=== PATIENT | female | born 1950 | race Caucasian/White ===

== ENCOUNTER → 2016-12-07 | Outpatient (CLI) | payer MEDICARE, BC | LOC: COL.LAB 06:43 | DX: R19.7 Diarrhea, unspecified (principal) ==

== ENCOUNTER 2017-04-28 12:55 | Outpatient (CLI) | payer MEDICARE, BC ==
[~2017-04-28] VITALS: Ht 162.6 cm; Wt 66.2 kg
[2017-04-28] MEDS ORDERED: SIMBRINZA 0.2%-18 ML OU (15:02)
[2017-04-28] MEDS ORDERED: TRAVATAN Z 2.52.5 ML OS (15:03)
[2017-04-28] MEDS ORDERED: METHOTREXA2.5 MG/TAB PO (15:04)
[2017-04-28] MEDS ORDERED: MYRBETR50MG PO (15:06)
[2017-04-28] MEDS ORDERED: FOLIC ACID 11 MG/TA1 PO (15:06)
[2017-04-28] MEDS ORDERED: MULTI VITAMINS1 TAB PO (15:06)
[2017-04-28] MEDS ORDERED: CALCIUM CARBON650 M2 PO (15:07)
[2017-04-28] MEDS ORDERED: THE MEDICINE S200 M2 PO (15:08)
[2017-04-28] MEDS ORDERED: VITAMIN D31000 I1 PO (15:08)
[2017-04-28] MEDS ORDERED: PROBIOTIC FORMU1 CAP PO (15:09)
[2017-04-28] MEDS ORDERED: B-12 100 MCG PO (15:09)
[2017-04-28 15:20] VITALS: BP 143/63; PULSE 62; TEMP 99
[2017-04-28 15:50] VITALS: BP 130/66; PULSE 57; TEMP 98.7
[2017-04-28 16:20] VITALS: BP 124/52; PULSE 106; TEMP 98.6
[2017-04-28 17:06] VITALS: BP 137/49; PULSE 61; TEMP 98.2
[2017-04-28 17:20] VITALS: BP 142/65; PULSE 71; TEMP 98.3
== END 2017-04-28 17:43 | disposition home or self-care (01) ==
LOC: EUO 12:55
DX: D86.89 Sarcoidosis of other sites (principal); Z79.899 Other long term (current) drug therapy
CPT/HCPCS: J1745; J7050; Q5102-ZB

== ENCOUNTER 2017-06-23 12:58 | Outpatient (CLI) | payer MEDICARE, BC ==
[~2017-06-23] VITALS: Ht 162.6 cm; Wt 66.9 kg
[~2017-06-23 12:58] MED LIST: B-12 100 MCG PO; CALCIUM CARBON650 M2 PO; FOLIC ACID 11 MG/TA1 PO; METHOTREXA2.5 MG/TAB PO; MULTI VITAMINS1 TAB PO; MYRBETR50MG PO; PROBIOTIC FORMU1 CAP PO; SIMBRINZA 0.2%-18 ML OU; THE MEDICINE S200 M2 PO; TRAVATAN Z 2.52.5 ML OS; VITAMIN D31000 I1 PO
[2017-06-23 13:24] VITALS: BP 132/66; PULSE 76; TEMP 98
== END 2017-06-23 16:26 | disposition home or self-care (01) ==
LOC: EUO 12:58
DX: D86.9 Sarcoidosis, unspecified (principal); Z88.6 Allergy status to analgesic agent; Z88.2 Allergy status to sulfonamides
CPT/HCPCS: J7050; Q5102-ZB

== ENCOUNTER → 2017-07-07 | Outpatient (CLI) | payer MEDICARE, BC | LOC: MC.RAD 10:19 | DX: Z12.31 Encounter for screening mammogram for malignant neoplasm of breast (principal) ==

== ENCOUNTER 2017-08-18 12:55 | Outpatient (CLI) | payer MEDICARE, BC ==
[~2017-08-18] VITALS: Ht 162.6 cm; Wt 67.0 kg
[2017-08-18 14:20] VITALS: BP 117/61; PULSE 55; TEMP 97.8
[2017-08-18 14:50] VITALS: BP 114/65; PULSE 58; TEMP 98.5
[2017-08-18 15:20] VITALS: BP 142/91; PULSE 59; TEMP 98.2
[2017-08-18 15:50] VITALS: BP 131/74; PULSE 50; TEMP 98.5
[2017-08-18 16:20] VITALS: BP 132/74; PULSE 64; TEMP 98.5
== END 2017-08-18 16:53 | disposition home or self-care (01) ==
LOC: EUO 12:55
DX: D86.89 Sarcoidosis of other sites (principal)
CPT/HCPCS: J7050; Q5102-ZB

== ENCOUNTER 2017-10-13 11:22 | Outpatient (CLI) | payer MEDICARE, BC ==
[~2017-10-13] VITALS: Ht 162.6 cm; Wt 67.1 kg
[2017-10-13 12:10] LABS: BASO % 0.7 % (0.0-2.0); EOS # 0.2 (0.0-0.7); GRAN % 56.5 % (42.2-75.2); LYMPH # 1.5 (1.2-3.4); MEAN CELL VOLUME 96 fl (80.0-100.0); MEAN CORPUSCULAR HGB CONC 33 g/dl (33.0-37.0); MEAN PLATELET VOLUME 8.7 fl (7.4-10.4); MONO # 0.6 (0.1-0.6); MONO % 11.4 % (1.7-9.3); PLATELET COUNT 161 K/mm3 (130-400); RED BLOOD COUNT 3.78 M/mm3 (4.10-5.30); REDCELL DISTRIBUTION WIDTH-CV 12.8 % (11.5-14.5)
[2017-10-13 12:11] LABS: HEMATOCRIT 36.3 % (37.0-47.0); HEMOGLOBIN 11.9 g/dl (12.5-16.0); MEAN CORPUSCULAR HEMOGLOBIN 31 pg (27.0-31.0)
[2017-10-13 12:20] LABS: ALANINE AMINOTRANSFERASE 34 U/L (9-52); ALBUMIN 3.6 gm/dL (3.5-5.0); ALKALINE PHOSPHATASE 57 U/L (50-136); ANION GAP 11 mmol/L (7-16); AST,SGOT 34 U/L (15-37); BILIRUBIN,TOTAL 0.4 mg/dL (0.0-1.0); BLOOD UREA NITROGEN 19 mg/dL (7-17); CALCIUM 8.9 mg/dL (8.4-10.2); CARBON DIOXIDE 26 mmol/L (22-30); CHLORIDE 102 mmol/L (98-107); CREATININE, serum 0.93 mg/dL (0.52-1.25); GLUCOSE 86 mg/dL (74-106); POTASSIUM 3.9 mmol/L (3.4-5.0); SODIUM 139 mmol/L (137-145); TOTAL PROTEIN 6.8 gm/dL (6.4-8.2)
[2017-10-13 12:21] LABS: C-REACTIVE PROTEIN < 0.5 mg/dL (0.0-0.9)
[2017-10-13 12:23] VITALS: BP 122/55; PULSE 56; TEMP 98.1
[2017-10-13 12:46] LABS: ERYTHROCYTE SEDIMENTATION RATE 7 mm/hr (0-30)
[2017-10-13 13:45] VITALS: BP 104/45; PULSE 65; TEMP 98.1
[2017-10-13 14:15] VITALS: BP 100/48; PULSE 63; TEMP 98
[2017-10-13 14:45] VITALS: BP 107/47; PULSE 55; TEMP 98.3
[2017-10-13 16:00] VITALS: BP 105/63; PULSE 60; TEMP 98.3
== END 2017-10-13 16:00 | disposition home or self-care (01) ==
LOC: EUO 11:22
PROVIDERS: Internal Medicine
DX: D86.9 Sarcoidosis, unspecified (principal); Z88.6 Allergy status to analgesic agent; Z88.2 Allergy status to sulfonamides
CPT/HCPCS: J7050; Q5103

== ENCOUNTER → 2017-10-13 | Outpatient (CLI) | payer MEDICARE, BC | LOC: COL.RAD 11:19 | DX: I89.8 Other specified noninfective disorders of lymphatic vessels and lymph nodes (principal); J98.4 Other disorders of lung; M25.78 Osteophyte, vertebrae; M47.814 Spondylosis without myelopathy or radiculopathy, thoracic region | CPT/HCPCS: J7050; Q9967 ==

== ENCOUNTER 2017-12-04 13:01 | Outpatient (CLI) | payer MEDICARE, BC ==
[~2017-12-04] VITALS: Ht 162.6 cm; Wt 69.4 kg
[2017-12-04 13:34] VITALS: BP 119/52; PULSE 65; TEMP 98.1
[2017-12-04 13:46] VITALS: BP 116/65; PULSE 57; TEMP 98.1
== END 2017-12-04 15:30 | disposition home or self-care (01) ==
LOC: EUO 13:01
DX: D86.9 Sarcoidosis, unspecified (principal)
CPT/HCPCS: J7050; Q5103

== ENCOUNTER 2018-01-27 11:04 | Outpatient (CLI) | payer MEDICARE, BC ==
[~2018-01-27] VITALS: Ht 162.6 cm; Wt 66.0 kg
[2018-01-27 11:31] LABS: BASO % 0.9 % (0.0-2.0); EOS # 0.1 (0.0-0.7); EOS % 2.8 % (0-4.0); GRAN # 2.7 (1.4-6.5); GRAN % 57.2 % (42.2-75.2); HEMATOCRIT 39.7 % (37.0-47.0); HEMOGLOBIN 13.2 g/dl (12.5-16.0); LYMPH # 1.3 (1.2-3.4); LYMPH % 26.9 % (20.0-51.0); MEAN CELL VOLUME 95 fl (80.0-100.0); MEAN CORPUSCULAR HEMOGLOBIN 32 pg (27.0-31.0); MEAN CORPUSCULAR HGB CONC 33 g/dl (33.0-37.0); MEAN PLATELET VOLUME 8.3 fl (7.4-10.4); MONO # 0.6 (0.1-0.6); PLATELET COUNT 174 K/mm3 (130-400); RED BLOOD COUNT 4.19 M/mm3 (4.10-5.30)
[2018-01-27 11:47] LABS: ALANINE AMINOTRANSFERASE 30 U/L (9-52); ALBUMIN 4.1 gm/dL (3.5-5.0); ALKALINE PHOSPHATASE 46 U/L (50-136); ANION GAP 8 mmol/L (7-16); AST,SGOT 31 U/L (15-37); BILIRUBIN,TOTAL 0.3 mg/dL (0.0-1.0); BLOOD UREA NITROGEN 16 mg/dL (7-17); CALCIUM 9.1 mg/dL (8.4-10.2); CARBON DIOXIDE 30 mmol/L (22-30); CHLORIDE 101 mmol/L (98-107); CREATININE, serum 0.93 mg/dL (0.52-1.25); GLUCOSE 76 mg/dL (74-106); POTASSIUM 4.5 mmol/L (3.4-5.0); SODIUM 139 mmol/L (137-145); TOTAL PROTEIN 7.4 gm/dL (6.4-8.2)
[2018-01-27 11:48] LABS: C-REACTIVE PROTEIN < 0.5 mg/dL (0.0-0.9)
[2018-01-27 11:52] LABS: ERYTHROCYTE SEDIMENTATION RATE 6 mm/hr (0-30)
[2018-01-27 12:30] VITALS: BP 116/57; PULSE 53; TEMP 98.5
[2018-01-27 13:00] VITALS: BP 115/60; PULSE 57; TEMP 97.9
[2018-01-27 13:30] VITALS: BP 101/55; PULSE 59; TEMP 98.3
[2018-01-27 14:00] VITALS: BP 97/62; PULSE 58; TEMP 98
[2018-01-27 14:30] VITALS: BP 113/58; PULSE 55; TEMP 98
== END 2018-01-27 14:39 | disposition home or self-care (01) ==
LOC: EUO 11:04
DX: D86.89 Sarcoidosis of other sites (principal); Z79.899 Other long term (current) drug therapy
CPT/HCPCS: J7050; Q5103

== ENCOUNTER 2018-03-24 13:08 | Outpatient (CLI) | payer MEDICARE, BC ==
[~2018-03-24] VITALS: Ht 162.6 cm; Wt 66.7 kg
[2018-03-24] VITALS (7 sets, daily range): BP systolic 95–117; BP diastolic 55–71; PULSE 53–64; TEMP 97.8–98.3
== END 2018-03-24 16:22 | disposition home or self-care (01) ==
LOC: EUO 13:08
DX: D86.89 Sarcoidosis of other sites (principal); Z79.899 Other long term (current) drug therapy
CPT/HCPCS: J7050; Q5103

== ENCOUNTER 2018-05-19 13:07 | Outpatient (CLI) | payer MEDICARE, BC ==
[~2018-05-19] VITALS: Ht 162.6 cm; Wt 67.4 kg
[2018-05-19 13:28] LABS: BASO # 0.1 (0.0-0.2); EOS # 0.2 (0.0-0.7); EOS % 3.1 % (0-4.0); GRAN # 2.8 (1.4-6.5); GRAN % 54.7 % (42.2-75.2); HEMATOCRIT 39.3 % (37.0-47.0); HEMOGLOBIN 12.8 g/dl (12.5-16.0); LYMPH # 1.5 (1.2-3.4); MEAN CELL VOLUME 96 fl (80.0-100.0); MEAN CORPUSCULAR HEMOGLOBIN 31 pg (27.0-31.0); MEAN CORPUSCULAR HGB CONC 33 g/dl (33.0-37.0); MEAN PLATELET VOLUME 8.7 fl (7.4-10.4); MONO # 0.6 (0.1-0.6); MONO % 12.2 % (1.7-9.3); PLATELET COUNT 175 K/mm3 (130-400); RED BLOOD COUNT 4.08 M/mm3 (4.10-5.30); REDCELL DISTRIBUTION WIDTH-CV 12.5 % (11.5-14.5)
[2018-05-19 13:42] LABS: ALANINE AMINOTRANSFERASE 42 U/L (9-52); ALBUMIN 4.1 gm/dL (3.5-5.0); ALKALINE PHOSPHATASE 55 U/L (50-136); ANION GAP 5 mmol/L (7-16); AST,SGOT 36 U/L (15-37); BILIRUBIN,TOTAL 0.3 mg/dL (0.0-1.0); BLOOD UREA NITROGEN 22 mg/dL (7-17); CALCIUM 9.4 mg/dL (8.4-10.2); CARBON DIOXIDE 32 mmol/L (22-30); CHLORIDE 105 mmol/L (98-107); GLUCOSE 98 mg/dL (74-106); SODIUM 142 mmol/L (137-145); TOTAL PROTEIN 7.2 gm/dL (6.4-8.2)
[2018-05-19 13:44] LABS: C-REACTIVE PROTEIN < 0.5 mg/dL (0.0-0.9)
[2018-05-19 13:52] LABS: ERYTHROCYTE SEDIMENTATION RATE 5 mm/hr (0-30)
[2018-05-19 14:17] VITALS: BP 101/57; PULSE 54; TEMP 98.6
[2018-05-19 14:52] VITALS: BP 104/55; PULSE 52; TEMP 98.3
[2018-05-19 15:37] VITALS: BP 112/61; PULSE 55; TEMP 98.7
[2018-05-19 16:09] VITALS: BP 113/56; PULSE 58; TEMP 98.4
[2018-05-19 16:35] VITALS: BP 115/60; PULSE 58; TEMP 98.6
== END 2018-05-19 16:51 | disposition home or self-care (01) ==
LOC: EUO 13:07
PROVIDERS: Family Medicine
DX: D86.89 Sarcoidosis of other sites (principal); Z79.899 Other long term (current) drug therapy
CPT/HCPCS: J7050; Q5103

== ENCOUNTER 2018-07-14 12:53 | Outpatient (CLI) | payer MEDICARE, BC ==
[~2018-07-14] VITALS: Ht 162.6 cm; Wt 67.0 kg
[2018-07-14 13:50] VITALS: BP 122/59; PULSE 60; TEMP 99
[2018-07-14 14:20] VITALS: BP 114/60; PULSE 56; TEMP 98.2
[2018-07-14 14:50] VITALS: BP 98/55; PULSE 50; TEMP 97.7
[2018-07-14 15:20] VITALS: BP 114/57; PULSE 59; TEMP 98.3
[2018-07-14 15:55] VITALS: BP 115/56; PULSE 53
== END 2018-07-14 15:56 | disposition home or self-care (01) ==
LOC: EUO 12:53
DX: D86.9 Sarcoidosis, unspecified (principal); Z79.899 Other long term (current) drug therapy
CPT/HCPCS: J7050; Q5103

== ENCOUNTER 2018-09-09 12:58 | Outpatient (CLI) | payer MEDICARE, BC ==
[~2018-09-09] VITALS: Ht 162.6 cm; Wt 67.0 kg
[2018-09-09 13:20] LABS: BASO % 0.8 % (0.0-2.0); EOS # 0.1 (0.0-0.7); EOS % 2.5 % (0-4.0); GRAN % 59.2 % (42.2-75.2); LYMPH # 1.3 (1.2-3.4); LYMPH % 25.2 % (20.0-51.0); MEAN CELL VOLUME 95 fl (80.0-100.0); MEAN CORPUSCULAR HEMOGLOBIN 31 pg (27.0-31.0); MEAN CORPUSCULAR HGB CONC 33 g/dl (33.0-37.0); MEAN PLATELET VOLUME 8.9 fl (7.4-10.4); MONO # 0.6 (0.1-0.6); MONO % 12.1 % (1.7-9.3); PLATELET COUNT 163 K/mm3 (130-400); RED BLOOD COUNT 3.86 M/mm3 (4.10-5.30); REDCELL DISTRIBUTION WIDTH-CV 12.8 % (11.5-14.5)
[2018-09-09 13:21] LABS: HEMATOCRIT 36.7 % (37.0-47.0)
[2018-09-09 13:33] LABS: ALANINE AMINOTRANSFERASE 18 U/L (9-52); ALBUMIN 3.7 gm/dL (3.5-5.0); ALKALINE PHOSPHATASE 53 U/L (50-136); ANION GAP 7 mmol/L (7-16); AST,SGOT 27 U/L (15-37); BILIRUBIN,TOTAL 0.3 mg/dL (0.0-1.0); BLOOD UREA NITROGEN 17 mg/dL (7-17); CALCIUM 8.9 mg/dL (8.4-10.2); CARBON DIOXIDE 27 mmol/L (22-30); CHLORIDE 106 mmol/L (98-107); CREATININE, serum 0.89 mg/dL (0.52-1.25); GLUCOSE 88 mg/dL (74-106); POTASSIUM 4.1 mmol/L (3.4-5.0); SODIUM 139 mmol/L (137-145); TOTAL PROTEIN 6.6 gm/dL (6.4-8.2)
[2018-09-09 13:34] LABS: C-REACTIVE PROTEIN < 0.5 mg/dL (0.0-0.9)
[2018-09-09 13:46] LABS: ERYTHROCYTE SEDIMENTATION RATE 5 mm/hr (0-30)
[2018-09-09 14:15] VITALS: BP 104/61; PULSE 60; TEMP 98.7
[2018-09-09 14:45] VITALS: BP 110/57; PULSE 52; TEMP 98.6
[2018-09-09 15:15] VITALS: BP 110/52; PULSE 50; TEMP 98.4
[2018-09-09 15:45] VITALS: BP 115/54; PULSE 51; PULSE 57; TEMP 98.6; TEMP 99.1
[2018-09-09 16:15] VITALS: BP 103/50; PULSE 57; TEMP 99.1
--- NOTE | 2018-09-09 16:20 | NUR ---
Pt javier inflectra well. Pt discharged per ambualtion.
== END 2018-09-09 16:25 | disposition home or self-care (01) ==
LOC: EUO 12:58
PROVIDERS: Internal Medicine
DX: D86.9 Sarcoidosis, unspecified (principal); Z79.899 Other long term (current) drug therapy
CPT/HCPCS: J7050; Q5103

== ENCOUNTER 2018-11-04 13:00 | Outpatient (CLI) | payer MEDICARE, BC ==
[~2018-11-04] VITALS: Ht 162.6 cm; Wt 66.8 kg
[2018-11-04 13:45] VITALS: BP 102/59; PULSE 56; TEMP 97.7
[2018-11-04 14:15] VITALS: BP 100/59; PULSE 60; TEMP 97.7
[2018-11-04 14:45] VITALS: BP 116/58; PULSE 67; TEMP 97.7
[2018-11-04 15:15] VITALS: BP 110/62; PULSE 60; TEMP 97.7
[2018-11-04 15:45] VITALS: BP 110/52; PULSE 58; TEMP 97.7
== END 2018-11-04 15:59 | disposition home or self-care (01) ==
LOC: EUO 13:00
DX: D86.9 Sarcoidosis, unspecified (principal); Z79.899 Other long term (current) drug therapy
CPT/HCPCS: J7050; Q5103

== ENCOUNTER 2018-12-30 12:57 | Outpatient (CLI) | payer MEDICARE, BC ==
[~2018-12-30] VITALS: Ht 162.6 cm; Wt 65.0 kg
[2018-12-30 13:29] LABS: BASO % 0.5 % (0.0-2.0); EOS # 0.2 (0.0-0.7); EOS % 3.6 % (0-4.0); GRAN # 3.3 (1.4-6.5); GRAN % 59.9 % (42.2-75.2); HEMATOCRIT 39.3 % (37.0-47.0); HEMOGLOBIN 12.9 g/dl (12.5-16.0); LYMPH # 1.4 (1.2-3.4); LYMPH % 24.7 % (20.0-51.0); MEAN CELL VOLUME 95 fl (80.0-100.0); MEAN CORPUSCULAR HEMOGLOBIN 31 pg (27.0-31.0); MEAN CORPUSCULAR HGB CONC 33 g/dl (33.0-37.0); MEAN PLATELET VOLUME 9.2 fl (7.4-10.4); MONO # 0.6 (0.1-0.6); MONO % 11.1 % (1.7-9.3); PLATELET COUNT 181 K/mm3 (130-400); RED BLOOD COUNT 4.14 M/mm3 (4.10-5.30); REDCELL DISTRIBUTION WIDTH-CV 13.1 % (11.5-14.5)
[2018-12-30 13:47] LABS: ALANINE AMINOTRANSFERASE 8 U/L (9-52); ALKALINE PHOSPHATASE 55 U/L (50-136); ANION GAP 10 mmol/L (7-16); AST,SGOT 28 U/L (15-37); BILIRUBIN,TOTAL 0.4 mg/dL (0.0-1.0); BLOOD UREA NITROGEN 18 mg/dL (7-17); CALCIUM 9.4 mg/dL (8.4-10.2); CARBON DIOXIDE 25 mmol/L (22-30); CHLORIDE 106 mmol/L (98-107); CREATININE, serum 0.94 (0.52-1.25); GLUCOSE 97 mg/dL (74-106); POTASSIUM 4.2 mmol/L (3.4-5.0); SODIUM 141 mmol/L (137-145); TOTAL PROTEIN 7.2 gm/dL (6.4-8.2)
[2018-12-30 13:49] LABS: C-REACTIVE PROTEIN < 0.5 mg/dL (0.0-0.9)
[2018-12-30 13:55] LABS: ERYTHROCYTE SEDIMENTATION RATE 8 mm/hr (0-30)
[2018-12-30 14:23] VITALS: BP 107/59; PULSE 62; TEMP 98.5
[2018-12-30 15:00] VITALS: BP 97/55; PULSE 55; TEMP 98
[2018-12-30 15:30] VITALS: BP 95/53; PULSE 62; TEMP 98.1
[2018-12-30 16:00] VITALS: BP 102/54; PULSE 57; TEMP 98
[2018-12-30 16:30] VITALS: BP 100/62; PULSE 63; TEMP 97.9
== END 2018-12-30 18:00 | disposition home or self-care (01) ==
LOC: EUO 12:57
PROVIDERS: Internal Medicine
DX: D86.89 Sarcoidosis of other sites (principal); Z79.899 Other long term (current) drug therapy
CPT/HCPCS: J7050; Q5103

== ENCOUNTER 2019-02-24 12:54 | Outpatient (CLI) | payer MEDICARE, BC ==
[~2019-02-24] VITALS: Ht 162.6 cm; Wt 66.0 kg
[2019-02-24 14:15] VITALS: BP 108/56; PULSE 55; TEMP 98.3
[2019-02-24 14:45] VITALS: BP 126/50; PULSE 50; TEMP 97.9
[2019-02-24 15:15] VITALS: BP 132/62; PULSE 47; TEMP 98.2
[2019-02-24 15:45] VITALS: BP 108/61; PULSE 57; TEMP 98.4
[2019-02-24 16:15] VITALS: BP 105/60; PULSE 56; TEMP 98.2
== END 2019-02-24 16:24 | disposition home or self-care (01) ==
LOC: EUO 12:54
DX: D86.9 Sarcoidosis, unspecified (principal); Z79.899 Other long term (current) drug therapy
CPT/HCPCS: J7050; Q5103

== ENCOUNTER 2019-05-03 12:44 | Outpatient (CLI) | payer MEDICARE, BC ==
[~2019-05-03] VITALS: Ht 162.6 cm; Wt 67.3 kg
[2019-05-03 13:06] LABS: BASO % 0.8 % (0.0-2.0); EOS # 0.2 (0.0-0.7); EOS % 3.3 % (0-4.0); GRAN # 2.9 (1.4-6.5); GRAN % 56.1 % (42.2-75.2); HEMATOCRIT 39.4 % (37.0-47.0); HEMOGLOBIN 12.7 g/dl (12.5-16.0); LYMPH # 1.4 (1.2-3.4); LYMPH % 26.9 % (20.0-51.0); MEAN CELL VOLUME 98 fl (80.0-100.0); MEAN CORPUSCULAR HEMOGLOBIN 31 pg (27.0-31.0); MEAN CORPUSCULAR HGB CONC 32 g/dl (33.0-37.0); MEAN PLATELET VOLUME 9.1 fl (7.4-10.4); MONO # 0.7 (0.1-0.6); MONO % 12.7 % (1.7-9.3); PLATELET COUNT 190 K/mm3 (130-400); RED BLOOD COUNT 4.04 M/mm3 (4.10-5.30); REDCELL DISTRIBUTION WIDTH-CV 12.6 % (11.5-14.5)
[2019-05-03 13:16] LABS: ALANINE AMINOTRANSFERASE 21 U/L (9-52); ALBUMIN 4.3 gm/dL (3.5-5.0); ALKALINE PHOSPHATASE 57 U/L (50-136); ANION GAP 8 mmol/L (7-16); AST,SGOT 30 U/L (15-37); BILIRUBIN,TOTAL 0.3 mg/dL (0.0-1.0); BLOOD UREA NITROGEN 18 mg/dL (7-17); CALCIUM 9.2 mg/dL (8.4-10.2); CARBON DIOXIDE 30 mmol/L (22-30); CHLORIDE 104 mmol/L (98-107); CREATININE, serum 0.92 (0.52-1.25); GLUCOSE 108 mg/dL (74-106); SODIUM 142 mmol/L (137-145); TOTAL PROTEIN 7.4 gm/dL (6.4-8.2)
[2019-05-03 13:20] LABS: C-REACTIVE PROTEIN < 0.5 mg/dL (0.0-0.9)
[2019-05-03 13:30] LABS: ERYTHROCYTE SEDIMENTATION RATE 6 mm/hr (0-30)
[2019-05-03 13:50] VITALS: BP 101/45; PULSE 51; TEMP 98.2
[2019-05-03 14:20] VITALS: BP 97/48; PULSE 54; TEMP 98.2
[2019-05-03 14:50] VITALS: BP 107/52; PULSE 59; TEMP 98.2
[2019-05-03 15:20] VITALS: BP 120/46; PULSE 60; TEMP 98.2
[2019-05-03 15:50] VITALS: BP 113/57; PULSE 61; TEMP 98.2
== END 2019-05-03 16:00 | disposition home or self-care (01) ==
LOC: EUO 12:44
PROVIDERS: Internal Medicine
DX: D86.89 Sarcoidosis of other sites (principal); Z79.899 Other long term (current) drug therapy
CPT/HCPCS: J7050; Q5103

== ENCOUNTER 2019-06-28 12:56 | Outpatient (CLI) | payer MEDICARE, BC ==
[~2019-06-28] VITALS: Ht 162.6 cm; Wt 66.7 kg
[2019-06-28 13:17] LABS: BASO % 0.6 % (0.0-2.0); EOS # 0.1 (0.0-0.7); EOS % 1.9 % (0-4.0); GRAN # 3.7 (1.4-6.5); GRAN % 58.8 % (42.2-75.2); HEMOGLOBIN 13.5 g/dl (12.5-16.0); LYMPH # 1.8 (1.2-3.4); LYMPH % 28.1 % (20.0-51.0); MEAN CELL VOLUME 96 fl (80.0-100.0); MEAN CORPUSCULAR HEMOGLOBIN 32 pg (27.0-31.0); MEAN CORPUSCULAR HGB CONC 33 g/dl (33.0-37.0); MONO # 0.7 (0.1-0.6); MONO % 10.3 % (1.7-9.3); PLATELET COUNT 219 K/mm3 (130-400); RED BLOOD COUNT 4.28 M/mm3 (4.10-5.30); REDCELL DISTRIBUTION WIDTH-CV 12.3 % (11.5-14.5)
[2019-06-28 13:31] LABS: ALANINE AMINOTRANSFERASE 21 U/L (9-52); ALBUMIN 4.5 gm/dL (3.5-5.0); ALKALINE PHOSPHATASE 60 U/L (50-136); ANION GAP 8 mmol/L (7-16); AST,SGOT 28 U/L (15-37); BILIRUBIN,TOTAL 0.4 mg/dL (0.0-1.0); BLOOD UREA NITROGEN 21 mg/dL (7-17); C-REACTIVE PROTEIN < 0.5 mg/dL (0.0-0.9); CALCIUM 9.6 mg/dL (8.4-10.2); CARBON DIOXIDE 31 mmol/L (22-30); CHLORIDE 104 mmol/L (98-107); CREATININE, serum 0.93 (0.52-1.25); GLUCOSE 101 mg/dL (74-106); SODIUM 143 mmol/L (137-145); TOTAL PROTEIN 7.8 gm/dL (6.4-8.2)
[2019-06-28 13:40] LABS: ERYTHROCYTE SEDIMENTATION RATE 8 mm/hr (0-30)
[2019-06-28 14:10] VITALS: BP 113/60; PULSE 58; TEMP 97.8
[2019-06-28 14:30] VITALS: BP 110/66; PULSE 66
[2019-06-28 15:00] VITALS: BP 106/56; PULSE 67; TEMP 97.4
[2019-06-28 15:30] VITALS: BP 108/61; PULSE 58; TEMP 98
[2019-06-28 16:00] VITALS: BP 95/65; PULSE 60
[2019-06-28 16:19] VITALS: BP 109/59; PULSE 62; TEMP 97.4
== END 2019-06-28 16:54 | disposition home or self-care (01) ==
LOC: EUO 12:56
PROVIDERS: Family Medicine
DX: D86.89 Sarcoidosis of other sites (principal); Z79.899 Other long term (current) drug therapy
CPT/HCPCS: J7050; Q5103

== ENCOUNTER → 2019-08-02 | Outpatient (CLI) | payer MEDICARE, BC | LOC: MC.RAD 11:17 | DX: Z12.31 Encounter for screening mammogram for malignant neoplasm of breast (principal) ==

== ENCOUNTER 2019-08-23 13:07 | Outpatient (CLI) | payer MEDICARE, BC ==
[2019-08-23 13:45] LABS: BASO # 0.1 (0.0-0.2); EOS # 0.2 (0.0-0.7); EOS % 4.6 % (0-4.0); GRAN # 2.7 (1.4-6.5); GRAN % 51.8 % (42.2-75.2); HEMATOCRIT 38.7 % (37.0-47.0); HEMOGLOBIN 12.4 g/dl (12.5-16.0); LYMPH # 1.5 (1.2-3.4); MEAN CELL VOLUME 96 fl (80.0-100.0); MEAN CORPUSCULAR HEMOGLOBIN 31 pg (27.0-31.0); MEAN CORPUSCULAR HGB CONC 32 g/dl (33.0-37.0); MEAN PLATELET VOLUME 8.8 fl (7.4-10.4); MONO # 0.7 (0.1-0.6); MONO % 13.4 % (1.7-9.3); PLATELET COUNT 189 K/mm3 (130-400); RED BLOOD COUNT 4.02 M/mm3 (4.10-5.30); REDCELL DISTRIBUTION WIDTH-CV 12.9 % (11.5-14.5)
[2019-08-23 13:57] LABS: ALBUMIN 4.1 gm/dL (3.5-5.0); BILIRUBIN,TOTAL 0.3 mg/dL (0.0-1.0); CALCIUM 9.1 mg/dL (8.4-10.2); CREATININE, serum 0.83 (0.52-1.25); POTASSIUM 4.1 mmol/L (3.4-5.0); TOTAL PROTEIN 7.2 gm/dL (6.4-8.2)
[2019-08-23 13:58] LABS: C-REACTIVE PROTEIN 0.5 mg/dL (0.0-0.9)
[2019-08-23 14:06] LABS: ERYTHROCYTE SEDIMENTATION RATE 9 mm/hr (0-30)
[2019-08-23 14:55] VITALS: BP 104/64; PULSE 55
[2019-08-23 15:25] VITALS: BP 123/68; PULSE 52; TEMP 98.7
[2019-08-23 15:55] VITALS: BP 112/70; PULSE 51; TEMP 98.7
[2019-08-23 16:25] VITALS: BP 99/62; PULSE 58
[2019-08-23 16:53] VITALS: BP 109/64; PULSE 58; TEMP 98.2
== END 2019-08-23 16:57 | disposition home or self-care (01) ==
LOC: EUO 13:07
PROVIDERS: Internal Medicine
DX: D86.89 Sarcoidosis of other sites (principal)
CPT/HCPCS: J7050; Q5103

== ENCOUNTER 2019-10-19 13:27 | Outpatient (CLI) | payer MEDICARE, BC ==
[~2019-10-19] VITALS: Ht 162.6 cm; Wt 66.6 kg
[2019-10-19 14:05] LABS: BASO % 0.8 % (0.0-2.0); EOS # 0.2 (0.0-0.7); EOS % 3.6 % (0-4.0); GRAN % 57.9 % (42.2-75.2); HEMATOCRIT 38.4 % (37.0-47.0); HEMOGLOBIN 12.7 g/dl (12.5-16.0); LYMPH # 1.3 (1.2-3.4); LYMPH % 25.1 % (20.0-51.0); MEAN CELL VOLUME 95 fl (80.0-100.0); MEAN CORPUSCULAR HEMOGLOBIN 31 pg (27.0-31.0); MEAN CORPUSCULAR HGB CONC 33 g/dl (33.0-37.0); MEAN PLATELET VOLUME 9.2 fl (7.4-10.4); MONO # 0.6 (0.1-0.6); MONO % 12.2 % (1.7-9.3); PLATELET COUNT 185 K/mm3 (130-400); RED BLOOD COUNT 4.05 M/mm3 (4.10-5.30); REDCELL DISTRIBUTION WIDTH-CV 12.4 % (11.5-14.5)
[2019-10-19 14:19] LABS: ALANINE AMINOTRANSFERASE 17 U/L (4-34); ALBUMIN 4.2 gm/dL (3.5-5.0); ALKALINE PHOSPHATASE 61 U/L (50-136); ANION GAP 5 mmol/L (7-16); AST,SGOT 31 U/L (15-37); BILIRUBIN,TOTAL 0.4 mg/dL (0.0-1.0); BLOOD UREA NITROGEN 18 mg/dL (7-17); CALCIUM 9.3 mg/dL (8.4-10.2); CARBON DIOXIDE 29 mmol/L (22-30); CHLORIDE 104 mmol/L (98-107); CREATININE, serum 0.86 (0.52-1.25); GLUCOSE 116 mg/dL (74-106); POTASSIUM 4.2 mmol/L (3.4-5.0); SODIUM 138 mmol/L (137-145); TOTAL PROTEIN 7.4 gm/dL (6.4-8.2)
[2019-10-19 14:20] LABS: C-REACTIVE PROTEIN < 0.5 mg/dL (0.0-0.9)
[2019-10-19 14:29] LABS: ERYTHROCYTE SEDIMENTATION RATE 7 mm/hr (0-30)
[2019-10-19 15:10] VITALS: BP 122/81; PULSE 52; TEMP 98.5
[2019-10-19 15:40] VITALS: BP 113/72; PULSE 54; TEMP 98.8
[2019-10-19 16:10] VITALS: BP 102/66; PULSE 53; TEMP 98.8
[2019-10-19 16:40] VITALS: BP 114/71; PULSE 54
[2019-10-19 17:10] VITALS: BP 115/72; PULSE 57; TEMP 98.7
[2019-10-19 17:28] VITALS: BP 120/75; PULSE 53; TEMP 98.7
== END 2019-10-19 17:28 | disposition home or self-care (01) ==
LOC: EUO 13:27
PROVIDERS: Internal Medicine
DX: Z51.81 Encounter for therapeutic drug level monitoring (principal); D86.89 Sarcoidosis of other sites
CPT/HCPCS: J7050; Q5103

== ENCOUNTER 2019-12-14 13:21 | Outpatient (CLI) | payer MEDICARE, BC ==
[~2019-12-14] VITALS: Ht 162.6 cm; Wt 67.0 kg
[2019-12-14 13:48] LABS: BASO % 0.6 % (0.0-2.0); EOS # 0.1 (0.0-0.7); EOS % 2.7 % (0-4.0); GRAN # 2.9 (1.4-6.5); GRAN % 54.9 % (42.2-75.2); HEMOGLOBIN 12.8 g/dl (12.5-16.0); LYMPH # 1.5 (1.2-3.4); LYMPH % 27.7 % (20.0-51.0); MEAN CELL VOLUME 94 fl (80.0-100.0); MEAN CORPUSCULAR HEMOGLOBIN 31 pg (27.0-31.0); MEAN CORPUSCULAR HGB CONC 33 g/dl (33.0-37.0); MEAN PLATELET VOLUME 9.1 fl (7.4-10.4); MONO # 0.7 (0.1-0.6); MONO % 13.7 % (1.7-9.3); PLATELET COUNT 188 K/mm3 (130-400); RED BLOOD COUNT 4.14 M/mm3 (4.10-5.30); REDCELL DISTRIBUTION WIDTH-CV 13.1 % (11.5-14.5)
[2019-12-14 14:15] LABS: BILIRUBIN,TOTAL 0.4 mg/dL (0.0-1.0); CALCIUM 9.1 mg/dL (8.4-10.2); CREATININE, serum 0.87 (0.52-1.25); POTASSIUM 4.2 mmol/L (3.4-5.0); TOTAL PROTEIN 7.2 gm/dL (6.4-8.2)
[2019-12-14 14:30] VITALS: BP 106/53; PULSE 60; TEMP 98
[2019-12-14 15:00] VITALS: BP 102/50; PULSE 63; TEMP 98.2
[2019-12-14 15:29] VITALS: BP 108/54; PULSE 61; TEMP 98.7
[2019-12-14 16:00] VITALS: BP 113/52; PULSE 62; TEMP 98
[2019-12-14 16:30] VITALS: BP 110/60; PULSE 60; TEMP 98
== END 2019-12-14 16:40 | disposition home or self-care (01) ==
LOC: EUO 13:21
PROVIDERS: Internal Medicine
DX: Z51.81 Encounter for therapeutic drug level monitoring (principal); D86.89 Sarcoidosis of other sites; Z79.899 Other long term (current) drug therapy
CPT/HCPCS: J7050; Q5103

== ENCOUNTER 2020-02-08 13:54 | Outpatient (CLI) | payer MEDICARE, BC ==
[~2020-02-08 13:54] MED LIST changes: +CALCIUM 600-D 61 TAB PO; -CALCIUM CARBON650 M2 PO
[2020-02-08 14:35] LABS: ALANINE AMINOTRANSFERASE 16 U/L (4-34); ALBUMIN 4.1 gm/dL (3.5-5.0); ALKALINE PHOSPHATASE 60 U/L (50-136); ANION GAP 8 mmol/L (7-16); AST,SGOT 29 U/L (15-37); BASO # 0.1 (0.0-0.2); BASO % 0.9 % (0.0-2.0); BILIRUBIN,TOTAL 0.3 mg/dL (0.0-1.0); BLOOD UREA NITROGEN 15 mg/dL (7-17); C-REACTIVE PROTEIN < 0.5 mg/dL (0.0-0.9); CALCIUM 9.2 mg/dL (8.4-10.2); CARBON DIOXIDE 28 mmol/L (22-30); CHLORIDE 103 mmol/L (98-107); CREATININE, serum 0.91 (0.52-1.25); EOS # 0.2 (0.0-0.7); EOS % 3.3 % (0-4.0); GLUCOSE 96 mg/dL (74-106); GRAN # 2.8 (1.4-6.5); GRAN % 52.9 % (42.2-75.2); HEMATOCRIT 39.7 % (37.0-47.0); HEMOGLOBIN 12.8 g/dl (12.5-16.0); LYMPH # 1.5 (1.2-3.4); LYMPH % 28.4 % (20.0-51.0); MEAN CELL VOLUME 97 fl (80.0-100.0); MEAN CORPUSCULAR HEMOGLOBIN 31 pg (27.0-31.0); MEAN CORPUSCULAR HGB CONC 32 g/dl (33.0-37.0); MEAN PLATELET VOLUME 9.2 fl (7.4-10.4); MONO # 0.8 (0.1-0.6); MONO % 14.1 % (1.7-9.3); PLATELET COUNT 246 K/mm3 (130-400); POTASSIUM 4.4 mmol/L (3.4-5.0); SODIUM 139 mmol/L (137-145); TOTAL PROTEIN 7.2 gm/dL (6.4-8.2)
[2020-02-08 15:10] VITALS: BP 105/57; PULSE 56; TEMP 98.9
[2020-02-08 15:33] LABS: ERYTHROCYTE SEDIMENTATION RATE 8 mm/hr (0-30)
[2020-02-08 15:40] VITALS: BP 96/61; PULSE 56
[2020-02-08 16:10] VITALS: BP 110/69; PULSE 51
[2020-02-08 16:40] VITALS: BP 110/68; PULSE 52
[2020-02-08 17:15] VITALS: BP 105/56; PULSE 52; TEMP 99
== END 2020-02-08 17:22 | disposition home or self-care (01) ==
LOC: EUO 13:54
PROVIDERS: Family Medicine
DX: D86.89 Sarcoidosis of other sites (principal)
CPT/HCPCS: J7050; Q5103

== ENCOUNTER 2020-04-04 13:19 | Outpatient (CLI) | payer MEDICARE, BC ==
[~2020-04-04] VITALS: Ht 162.6 cm; Wt 66.0 kg
[2020-04-04 13:38] LABS: BASO # 0.1 (0.0-0.2); BASO % 0.8 % (0.0-2.0); EOS # 0.2 (0.0-0.7); EOS % 3.7 % (0-4.0); GRAN # 3.3 (1.4-6.5); GRAN % 56.2 % (42.2-75.2); HEMATOCRIT 40.7 % (37.0-47.0); HEMOGLOBIN 13.4 g/dl (12.5-16.0); LYMPH # 1.6 (1.2-3.4); MEAN CELL VOLUME 94 fl (80.0-100.0); MEAN CORPUSCULAR HEMOGLOBIN 31 pg (27.0-31.0); MEAN CORPUSCULAR HGB CONC 33 g/dl (33.0-37.0); MEAN PLATELET VOLUME 8.9 fl (7.4-10.4); MONO # 0.7 (0.1-0.6); MONO % 12.1 % (1.7-9.3); PLATELET COUNT 197 K/mm3 (130-400); RED BLOOD COUNT 4.33 M/mm3 (4.10-5.30); REDCELL DISTRIBUTION WIDTH-CV 12.7 % (11.5-14.5)
[2020-04-04 13:50] LABS: ALANINE AMINOTRANSFERASE 17 U/L (4-34); ALBUMIN 4.4 gm/dL (3.5-5.0); ALKALINE PHOSPHATASE 54 U/L (50-136); ANION GAP 7 mmol/L (7-16); AST,SGOT 28 U/L (15-37); BILIRUBIN,TOTAL 0.4 mg/dL (0.0-1.0); BLOOD UREA NITROGEN 18 mg/dL (7-17); CALCIUM 9.1 mg/dL (8.4-10.2); CARBON DIOXIDE 30 mmol/L (22-30); CHLORIDE 102 mmol/L (98-107); GLUCOSE 96 mg/dL (74-106); POTASSIUM 3.7 mmol/L (3.4-5.0); SODIUM 139 mmol/L (137-145); TOTAL PROTEIN 7.4 gm/dL (6.4-8.2)
[2020-04-04 13:52] LABS: C-REACTIVE PROTEIN < 0.5 mg/dL (0.0-0.9)
[2020-04-04 14:50] VITALS: BP 113/69; PULSE 63; TEMP 98.2
[2020-04-04 15:20] VITALS: BP 97/57; PULSE 59; TEMP 98.2
[2020-04-04 15:46] LABS: ERYTHROCYTE SEDIMENTATION RATE 4 mm/hr (0-30)
[2020-04-04 15:50] VITALS: BP 92/59; PULSE 58; TEMP 98.2
[2020-04-04 16:20] VITALS: BP 106/69; PULSE 55; TEMP 98.2
[2020-04-04 16:49] VITALS: BP 118/68; PULSE 55; TEMP 98.2
== END 2020-04-04 16:51 | disposition home or self-care (01) ==
LOC: EUO 13:19
PROVIDERS: Family Medicine
DX: D86.9 Sarcoidosis, unspecified (principal)
CPT/HCPCS: J7050; Q5103

== ENCOUNTER 2020-06-23 08:05 | Outpatient (CLI) | payer MEDICARE, BC ==
[~2020-06-23] VITALS: Ht 162.6 cm; Wt 66.1 kg
[2020-06-23 08:32] LABS: BASO % 0.7 % (0.0-2.0); EOS # 0.2 (0.0-0.7); EOS % 2.8 % (0-4.0); GRAN # 3.9 (1.4-6.5); GRAN % 63.3 % (42.2-75.2); HEMATOCRIT 41.1 % (37.0-47.0); HEMOGLOBIN 13.4 g/dl (12.5-16.0); LYMPH # 1.3 (1.2-3.4); LYMPH % 20.7 % (20.0-51.0); MEAN CELL VOLUME 96 fl (80.0-100.0); MEAN CORPUSCULAR HEMOGLOBIN 31 pg (27.0-31.0); MEAN CORPUSCULAR HGB CONC 33 g/dl (33.0-37.0); MEAN PLATELET VOLUME 8.9 fl (7.4-10.4); MONO # 0.8 (0.1-0.6); MONO % 12.2 % (1.7-9.3); PLATELET COUNT 227 K/mm3 (130-400); RED BLOOD COUNT 4.28 M/mm3 (4.10-5.30)
[2020-06-23 08:35] VITALS: BP 137/71; PULSE 52; TEMP 98.5
[2020-06-23 08:44] LABS: ALBUMIN 4.3 gm/dL (3.5-5.0); BILIRUBIN,TOTAL 0.5 mg/dL (0.0-1.0); CALCIUM 9.2 mg/dL (8.4-10.2); CREATININE, serum 0.98 (0.52-1.25); POTASSIUM 3.9 mmol/L (3.4-5.0); TOTAL PROTEIN 7.3 gm/dL (6.4-8.2)
[2020-06-23 10:23] VITALS: BP 122/79; PULSE 54; TEMP 99.3
[2020-06-23 10:50] VITALS: BP 117/70; PULSE 51
[2020-06-23 11:20] VITALS: PULSE 44
[2020-06-23 11:50] VITALS: BP 105/60; PULSE 59; TEMP 98.3
[2020-06-23 12:20] VITALS: PULSE 63
--- NOTE | 2020-06-23 12:33 | NUR ---
Pt tolerated infusion well without any adverse reaction. appointment made for 8 weeks out, appt card given. IV dc'd, dressing applied, pt amb to exit with no problem.
== END 2020-06-23 12:34 | disposition home or self-care (01) ==
LOC: EUO 08:05
PROVIDERS: Family Medicine
DX: D86.9 Sarcoidosis, unspecified (principal)
CPT/HCPCS: J7050; Q5103

== ENCOUNTER 2020-08-18 13:30 | Outpatient (CLI) | payer MEDICARE, BC ==
[~2020-08-18] VITALS: Ht 162.6 cm; Wt 66.3 kg
[2020-08-18 14:13] LABS: BASO # 0.1 (0.0-0.2); BASO % 0.9 % (0.0-2.0); EOS # 0.2 (0.0-0.7); EOS % 4.2 % (0-4.0); GRAN # 3.3 (1.4-6.5); GRAN % 57.8 % (42.2-75.2); HEMATOCRIT 40.5 % (37.0-47.0); HEMOGLOBIN 12.9 g/dl (12.5-16.0); LYMPH # 1.6 (1.2-3.4); LYMPH % 27.4 % (20.0-51.0); MEAN CELL VOLUME 97 fl (80.0-100.0); MEAN CORPUSCULAR HEMOGLOBIN 31 pg (27.0-31.0); MEAN CORPUSCULAR HGB CONC 32 g/dl (33.0-37.0); MONO # 0.6 (0.1-0.6); MONO % 9.7 % (1.7-9.3); PLATELET COUNT 189 K/mm3 (130-400); RED BLOOD COUNT 4.18 M/mm3 (4.10-5.30); REDCELL DISTRIBUTION WIDTH-CV 13.1 % (11.5-14.5)
[2020-08-18 14:28] LABS: ALBUMIN 4.1 gm/dL (3.5-5.0); BILIRUBIN,TOTAL 0.4 mg/dL (0.0-1.0); CREATININE, serum 0.91 (0.52-1.25)
[2020-08-18 15:30] VITALS: BP 107/62; PULSE 49; TEMP 98.7
[2020-08-18 16:00] VITALS: BP 105/58; PULSE 52
[2020-08-18 16:30] VITALS: BP 123/61; PULSE 20
[2020-08-18 17:00] VITALS: PULSE 52
[2020-08-18 17:30] VITALS: BP 119/74; PULSE 60
== END 2020-08-18 19:42 | disposition home or self-care (01) ==
LOC: EUO
PROVIDERS: Family Medicine
DX: D86.9 Sarcoidosis, unspecified (principal); I35.9 Nonrheumatic aortic valve disorder, unspecified
CPT/HCPCS: J7050; Q5103

== ENCOUNTER 2020-10-13 13:17 | Outpatient (CLI) | payer MEDICARE, BC ==
[~2020-10-13] VITALS: Ht 162.6 cm; Wt 66.4 kg
[2020-10-13 14:09] LABS: BASO # 0.1 (0.0-0.2); BASO % 0.8 % (0.0-2.0); EOS # 0.2 (0.0-0.7); EOS % 3.5 % (0-4.0); GRAN # 3.6 (1.4-6.5); GRAN % 57.8 % (42.2-75.2); HEMATOCRIT 38.8 % (37.0-47.0); HEMOGLOBIN 12.9 g/dl (12.5-16.0); LYMPH # 1.6 (1.2-3.4); LYMPH % 25.3 % (20.0-51.0); MEAN CELL VOLUME 95 fl (80.0-100.0); MEAN CORPUSCULAR HEMOGLOBIN 32 pg (27.0-31.0); MEAN CORPUSCULAR HGB CONC 33 g/dl (33.0-37.0); MEAN PLATELET VOLUME 9.1 fl (7.4-10.4); MONO # 0.8 (0.1-0.6); MONO % 12.4 % (1.7-9.3); PLATELET COUNT 188 K/mm3 (130-400); RED BLOOD COUNT 4.09 M/mm3 (4.10-5.30)
[2020-10-13 14:27] LABS: ALBUMIN 4.1 gm/dL (3.5-5.0); BILIRUBIN,TOTAL 0.2 mg/dL (0.0-1.0); CALCIUM 8.9 mg/dL (8.4-10.2); CREATININE, serum 0.87 (0.52-1.25); POTASSIUM 3.9 mmol/L (3.4-5.0); TOTAL PROTEIN 7.1 gm/dL (6.4-8.2)
[2020-10-13 15:00] VITALS: PULSE 54; TEMP 98.7
[2020-10-13 15:15] VITALS: BP 105/46; PULSE 53
[2020-10-13 15:45] VITALS: BP 107/69; PULSE 55; TEMP 97.9
[2020-10-13 16:15] VITALS: BP 106/53; PULSE 53
[2020-10-13 16:45] VITALS: BP 107/69; PULSE 55
[2020-10-13 17:00] VITALS: BP 106/67; PULSE 55
== END 2020-10-13 17:10 | disposition home or self-care (01) ==
LOC: EUO 13:17
PROVIDERS: Family Medicine
DX: D86.9 Sarcoidosis, unspecified (principal); Z79.899 Other long term (current) drug therapy
CPT/HCPCS: J7050; Q5103

== ENCOUNTER 2020-12-08 13:22 | Outpatient (CLI) | payer MEDICARE, BC ==
[~2020-12-08] VITALS: Ht 162.6 cm; Wt 66.5 kg
[2020-12-08 13:52] LABS: BASO % 0.7 % (0.0-2.0); EOS # 0.1 (0.0-0.7); EOS % 2.5 % (0-4.0); GRAN # 3.2 (1.4-6.5); GRAN % 56.7 % (42.2-75.2); HEMATOCRIT 37.7 % (37.0-47.0); HEMOGLOBIN 12.4 g/dl (12.5-16.0); LYMPH # 1.5 (1.2-3.4); LYMPH % 26.8 % (20.0-51.0); MEAN CELL VOLUME 95 fl (80.0-100.0); MEAN CORPUSCULAR HEMOGLOBIN 31 pg (27.0-31.0); MEAN CORPUSCULAR HGB CONC 33 g/dl (33.0-37.0); MEAN PLATELET VOLUME 9.1 fl (7.4-10.4); MONO # 0.8 (0.1-0.6); MONO % 13.1 % (1.7-9.3); PLATELET COUNT 184 K/mm3 (130-400); RED BLOOD COUNT 3.95 M/mm3 (4.10-5.30); REDCELL DISTRIBUTION WIDTH-CV 12.9 % (11.5-14.5)
[2020-12-08 13:55] LABS: ALBUMIN 3.9 gm/dL (3.5-5.0); BILIRUBIN,TOTAL 0.4 mg/dL (0.0-1.0); CALCIUM 9.2 mg/dL (8.4-10.2); CREATININE, serum 0.86 (0.52-1.25); POTASSIUM 4.1 mmol/L (3.4-5.0)
[2020-12-08 14:09] VITALS: BP 110/60; PULSE 58; TEMP 97.9
[2020-12-08 14:55] VITALS: BP 113/66; PULSE 63
[2020-12-08 15:30] VITALS: BP 115/59; PULSE 57
[2020-12-08 16:00] VITALS: BP 104/52; PULSE 50
[2020-12-08 16:30] VITALS: BP 100/59; PULSE 47
[2020-12-08 16:50] VITALS: BP 118/57; PULSE 60
== END 2020-12-08 19:17 | disposition home or self-care (01) ==
LOC: EUO 13:22
PROVIDERS: Family Medicine
DX: D86.9 Sarcoidosis, unspecified (principal); I35.9 Nonrheumatic aortic valve disorder, unspecified
CPT/HCPCS: J7050; Q5103

== ENCOUNTER 2021-02-02 13:17 | Outpatient (CLI) | payer MEDICARE, BC ==
[~2021-02-02] VITALS: Ht 162.6 cm; Wt 66.3 kg
[2021-02-02 13:52] LABS: BASO # 0.1 (0.0-0.2); BASO % 0.9 % (0.0-2.0); EOS # 0.2 (0.0-0.7); GRAN # 3.1 (1.4-6.5); GRAN % 55.1 % (42.2-75.2); HEMATOCRIT 37.8 % (37.0-47.0); HEMOGLOBIN 12.7 g/dl (12.5-16.0); LYMPH # 1.7 (1.2-3.4); LYMPH % 29.2 % (20.0-51.0); MEAN CELL VOLUME 94 fl (80.0-100.0); MEAN CORPUSCULAR HEMOGLOBIN 32 pg (27.0-31.0); MEAN CORPUSCULAR HGB CONC 34 g/dl (33.0-37.0); MEAN PLATELET VOLUME 9.3 fl (7.4-10.4); MONO # 0.6 (0.1-0.6); MONO % 10.6 % (1.7-9.3); PLATELET COUNT 181 K/mm3 (130-400); RED BLOOD COUNT 4.03 M/mm3 (4.10-5.30); REDCELL DISTRIBUTION WIDTH-CV 12.8 % (11.5-14.5)
[2021-02-02 14:01] LABS: BILIRUBIN,TOTAL 0.2 mg/dL (0.0-1.0); CALCIUM 8.9 mg/dL (8.4-10.2); CREATININE, serum 0.9 (0.52-1.25); POTASSIUM 4.2 mmol/L (3.4-5.0)
[2021-02-02 14:50] VITALS: BP 116/76; PULSE 47; TEMP 98.3
[2021-02-02 15:20] VITALS: BP 118/79; PULSE 56; TEMP 98.3
[2021-02-02 15:50] VITALS: BP 112/72; PULSE 52; TEMP 98.3
[2021-02-02 16:20] VITALS: BP 106/65; PULSE 52
[2021-02-02 16:50] VITALS: BP 106/71; PULSE 54
== END 2021-02-02 16:44 | disposition home or self-care (01) ==
LOC: EUO 13:17
PROVIDERS: Family Medicine
DX: D86.9 Sarcoidosis, unspecified (principal)
CPT/HCPCS: J7050; Q5103

== ENCOUNTER 2021-03-30 13:26 | Outpatient (CLI) | payer MEDICARE, BC ==
[~2021-03-30] VITALS: Ht 162.6 cm; Wt 81.9 kg
[2021-03-30 14:12] LABS: BASO # 0.1 K/mm3 (0.0-0.2); EOS # 0.2 K/mm3 (0.0-0.7); EOS % 3.8 % (0-4.0); GRAN # 2.9 K/mm3 (1.4-6.5); GRAN % 54.6 % (42.2-75.2); HEMATOCRIT 37.8 % (37.0-47.0); HEMOGLOBIN 12.5 g/dl (12.5-16.0); LYMPH # 1.6 K/mm3 (1.2-3.4); LYMPH % 29.9 % (20.0-51.0); MEAN CELL VOLUME 96 fl (80.0-100.0); MEAN CORPUSCULAR HEMOGLOBIN 32 pg (27.0-31.0); MEAN CORPUSCULAR HGB CONC 33 g/dl (33.0-37.0); MEAN PLATELET VOLUME 8.7 fl (7.4-10.4); MONO # 0.6 K/mm3 (0.1-0.6); MONO % 10.5 % (1.7-9.3); PLATELET COUNT 176 K/mm3 (130-400); RED BLOOD COUNT 3.96 M/mm3 (4.10-5.30)
[2021-03-30 14:29] LABS: ALBUMIN 3.9 gm/dL (3.4-4.8); BILIRUBIN,TOTAL 0.3 mg/dL (0.2-1.2); CALCIUM 9.4 mg/dL (8.4-10.2); CREATININE, serum 0.85 mg/dL (0.57-1.11); TOTAL PROTEIN 6.9 gm/dL (6.2-8.1)
[2021-03-30 15:00] VITALS: BP 130/55; PULSE 52; TEMP 98
[2021-03-30 15:30] VITALS: BP 114/49; PULSE 56
[2021-03-30 16:00] VITALS: BP 115/46; PULSE 50
[2021-03-30 16:30] VITALS: BP 116/49; PULSE 57
[2021-03-30 17:00] VITALS: PULSE 60
== END 2021-03-30 18:01 | disposition home or self-care (01) ==
LOC: EUO 13:26
PROVIDERS: Family Medicine
DX: D86.9 Sarcoidosis, unspecified (principal)
CPT/HCPCS: J7050; Q5103

== ENCOUNTER 2021-05-25 13:23 | Outpatient (CLI) | payer MEDICARE, BC ==
[~2021-05-25] VITALS: Ht 162.6 cm; Wt 64.8 kg
[2021-05-25 13:48] LABS: BASO % 0.5 % (0.0-2.0); EOS # 0.2 K/mm3 (0.0-0.7); EOS % 3.1 % (0-4.0); GRAN # 3.4 K/mm3 (1.4-6.5); GRAN % 57.5 % (42.2-75.2); HEMATOCRIT 40.3 % (37.0-47.0); HEMOGLOBIN 13.7 g/dl (12.5-16.0); LYMPH # 1.6 K/mm3 (1.2-3.4); LYMPH % 27.4 % (20.0-51.0); MEAN CELL VOLUME 94 fl (80.0-100.0); MEAN CORPUSCULAR HEMOGLOBIN 32 pg (27.0-31.0); MEAN CORPUSCULAR HGB CONC 34 g/dl (33.0-37.0); MEAN PLATELET VOLUME 9.1 fl (7.4-10.4); MONO # 0.7 K/mm3 (0.1-0.6); MONO % 11.3 % (1.7-9.3); PLATELET COUNT 179 K/mm3 (130-400); RED BLOOD COUNT 4.27 M/mm3 (4.10-5.30); REDCELL DISTRIBUTION WIDTH-CV 12.8 % (11.5-14.5)
[2021-05-25 14:00] VITALS: BP 122/66; PULSE 67; TEMP 97.8
[2021-05-25 14:05] LABS: ALBUMIN 4.1 gm/dL (3.4-4.8); BILIRUBIN,TOTAL 0.5 mg/dL (0.2-1.2); CALCIUM 9.3 mg/dL (8.4-10.2); CREATININE, serum 0.97 mg/dL (0.57-1.11); TOTAL PROTEIN 7.2 gm/dL (6.2-8.1)
[2021-05-25 14:30] VITALS: BP 107/59; BP 108/71; PULSE 61; PULSE 66; TEMP 97.8
[2021-05-25 15:00] VITALS: BP 116/62; PULSE 62; TEMP 97.8
[2021-05-25 15:30] VITALS: BP 110/63; PULSE 64; TEMP 97.8
[2021-05-25 16:00] VITALS: BP 108/67; PULSE 61; TEMP 97.8
[2021-05-25 16:30] VITALS: BP 106/59; PULSE 68; TEMP 97.8
== END 2021-05-25 16:30 | disposition home or self-care (01) ==
LOC: EUO 13:23
PROVIDERS: Family Medicine
DX: D86.9 Sarcoidosis, unspecified (principal)
CPT/HCPCS: J7050; Q5103

== ENCOUNTER → 2021-06-19 | Outpatient (CLI) | payer MEDICARE, BC | LOC: MC.RAD 13:02 | DX: Z12.31 Encounter for screening mammogram for malignant neoplasm of breast (principal) ==

== ENCOUNTER 2021-07-20 13:19 | Outpatient (CLI) | payer MEDICARE, BC ==
[~2021-07-20] VITALS: Ht 162.6 cm; Wt 63.5 kg
[2021-07-20 13:48] LABS: BASO % 0.4 % (0.0-2.0); EOS # 0.1 K/mm3 (0.0-0.7); EOS % 2.3 % (0.0-4.0); GRAN % 53.9 % (42.2-75.2); HEMATOCRIT 39.6 % (37.0-47.0); HEMOGLOBIN 13.2 g/dl (12.5-16.0); LYMPH # 1.9 K/mm3 (1.2-3.4); LYMPH % 33.5 % (20.0-51.0); MEAN CELL VOLUME 93 fl (80.0-100.0); MEAN CORPUSCULAR HEMOGLOBIN 31 pg (27-31); MEAN CORPUSCULAR HGB CONC 33 g/dl (33.0-37.0); MEAN PLATELET VOLUME 9.4 fl (7.4-10.4); MONO # 0.5 K/mm3 (0.1-0.6); MONO % 9.7 % (1.7-9.3); PLATELET COUNT 205 K/mm3 (130-400); RED BLOOD COUNT 4.24 M/mm3 (4.10-5.30); REDCELL DISTRIBUTION WIDTH-CV 12.7 % (11.5-14.5)
[2021-07-20 14:06] LABS: BILIRUBIN,TOTAL 0.4 mg/dL (0.2-1.2); CALCIUM 8.9 mg/dL (8.4-10.2); CREATININE, serum 0.87 mg/dL (0.57-1.11); POTASSIUM 3.6 mmol/L (3.5-4.5)
[2021-07-20 14:58] VITALS: BP 116/46; PULSE 61; TEMP 98.1
[2021-07-20 15:00] VITALS: BP 116/46; PULSE 62
[2021-07-20 15:30] VITALS: BP 117/45; PULSE 53
[2021-07-20 16:00] VITALS: BP 111/53; PULSE 64
[2021-07-20 16:30] VITALS: BP 118/62; PULSE 60
[2021-07-20 17:05] VITALS: BP 126/77; PULSE 56
== END 2021-07-20 17:15 | disposition home or self-care (01) ==
LOC: EUO 13:19
PROVIDERS: Family Medicine
DX: H20.9 Unspecified iridocyclitis (principal)
CPT/HCPCS: J7050; Q5103

== ENCOUNTER 2021-09-14 13:22 | Outpatient (CLI) | payer MEDICARE, BC ==
[~2021-09-14 13:22] MED LIST changes: -PROBIOTIC FORMU1 CAP PO; +PROBIOTIC-MAJOR PO
[2021-09-14 13:58] LABS: BASO # 0.1 K/mm3 (0.0-0.2); BASO % 0.8 % (0.0-2.0); EOS # 0.2 K/mm3 (0.0-0.7); GRAN # 3.4 K/mm3 (1.4-6.5); HEMATOCRIT 38.4 % (37.0-47.0); HEMOGLOBIN 12.8 g/dl (12.5-16.0); LYMPH # 1.7 K/mm3 (1.2-3.4); LYMPH % 28.4 % (20.0-51.0); MEAN CELL VOLUME 94 fl (80.0-100.0); MEAN CORPUSCULAR HEMOGLOBIN 31 pg (27-31); MEAN CORPUSCULAR HGB CONC 33 g/dl (33.0-37.0); MEAN PLATELET VOLUME 9.2 fl (7.4-10.4); MONO # 0.6 K/mm3 (0.1-0.6); MONO % 10.6 % (1.7-9.3); PLATELET COUNT 189 K/mm3 (130-400); REDCELL DISTRIBUTION WIDTH-CV 12.9 % (11.5-14.5)
[2021-09-14 14:16] LABS: BILIRUBIN,TOTAL 0.4 mg/dL (0.2-1.2); CALCIUM 9.1 mg/dL (8.4-10.2); CREATININE, serum 0.9 mg/dL (0.57-1.11); POTASSIUM 4.1 mmol/L (3.5-4.5)
[2021-09-14 14:43] VITALS: BP 104/49; PULSE 51; TEMP 98.3
[2021-09-14 15:30] VITALS: BP 110/63; PULSE 62
[2021-09-14 16:00] VITALS: BP 109/60; PULSE 51
[2021-09-14 16:30] VITALS: BP 112/65; PULSE 50
[2021-09-14 17:00] VITALS: BP 141/65; PULSE 61; TEMP 98.3
== END 2021-09-14 17:06 | disposition home or self-care (01) ==
LOC: EUO 13:22
PROVIDERS: Family Medicine
DX: H20.9 Unspecified iridocyclitis (principal)
CPT/HCPCS: J7050; Q5103

== ENCOUNTER 2021-11-09 13:13 | Outpatient (CLI) | payer MEDICARE, BC ==
[~2021-11-09] VITALS: Ht 162.6 cm; Wt 63.1 kg
[2021-11-09 13:43] LABS: BASO % 0.6 % (0.0-2.0); EOS # 0.2 K/mm3 (0.0-0.7); GRAN % 63.2 % (42.2-75.2); HEMATOCRIT 40.7 % (37.0-47.0); HEMOGLOBIN 13.1 g/dl (12.5-16.0); LYMPH # 1.6 K/mm3 (1.2-3.4); LYMPH % 24.5 % (20.0-51.0); MEAN CELL VOLUME 96 fl (80.0-100.0); MEAN CORPUSCULAR HEMOGLOBIN 31 pg (27-31); MEAN CORPUSCULAR HGB CONC 32 g/dl (33.0-37.0); MEAN PLATELET VOLUME 9.3 fl (7.4-10.4); MONO # 0.5 K/mm3 (0.1-0.6); MONO % 8.5 % (1.7-9.3); PLATELET COUNT 190 K/mm3 (130-400); RED BLOOD COUNT 4.24 M/mm3 (4.10-5.30); REDCELL DISTRIBUTION WIDTH-CV 12.7 % (11.5-14.5)
[2021-11-09 13:54] LABS: BILIRUBIN,TOTAL 0.4 mg/dL (0.2-1.2); CALCIUM 9.2 mg/dL (8.4-10.2); CREATININE, serum 1.05 mg/dL (0.57-1.11); POTASSIUM 3.7 mmol/L (3.5-4.5)
[2021-11-09 14:35] VITALS: BP 108/62; PULSE 57; TEMP 97.3
[2021-11-09 15:11] VITALS: BP 107/61; PULSE 58
[2021-11-09 15:27] VITALS: BP 102/59; PULSE 47
[2021-11-09 15:59] VITALS: BP 105/62; PULSE 60
[2021-11-09 16:29] VITALS: BP 121/69; PULSE 55; TEMP 98.1
== END 2021-11-09 17:31 | disposition home or self-care (01) ==
LOC: EUO 13:13
PROVIDERS: Family Medicine
DX: H20.9 Unspecified iridocyclitis (principal); D86.9 Sarcoidosis, unspecified
CPT/HCPCS: J7050; Q5103

== ENCOUNTER 2022-01-04 13:13 | Outpatient (CLI) | payer MEDICARE, BC ==
[~2022-01-04 13:13] MED LIST changes: -B-12 100 MCG PO; +VITAMIN B12 781 TAB PO
[2022-01-04 13:40] LABS: BASO % 0.7 % (0.0-2.0); EOS # 0.2 K/mm3 (0.0-0.7); EOS % 2.7 % (0.0-4.0); GRAN # 3.2 K/mm3 (1.4-6.5); GRAN % 54.1 % (42.2-75.2); HEMATOCRIT 38.3 % (37.0-47.0); HEMOGLOBIN 12.8 g/dl (12.5-16.0); LYMPH # 1.8 K/mm3 (1.2-3.4); LYMPH % 31.2 % (20.0-51.0); MEAN CELL VOLUME 93 fl (80.0-100.0); MEAN CORPUSCULAR HEMOGLOBIN 31 pg (27-31); MEAN CORPUSCULAR HGB CONC 33 g/dl (33.0-37.0); MEAN PLATELET VOLUME 8.9 fl (7.4-10.4); MONO # 0.7 K/mm3 (0.1-0.6); MONO % 11.1 % (1.7-9.3); PLATELET COUNT 180 K/mm3 (130-400); RED BLOOD COUNT 4.11 M/mm3 (4.10-5.30); REDCELL DISTRIBUTION WIDTH-CV 12.9 % (11.5-14.5)
[2022-01-04 14:02] LABS: ALBUMIN 3.8 gm/dL (3.4-4.8); BILIRUBIN,TOTAL 0.4 mg/dL (0.2-1.2); CALCIUM 9.5 mg/dL (8.4-10.2); CREATININE, serum 0.96 mg/dL (0.57-1.11); POTASSIUM 3.9 mmol/L (3.5-4.5); TOTAL PROTEIN 6.9 gm/dL (6.2-8.1)
[2022-01-04 14:38] VITALS: BP 99/51; PULSE 59; TEMP 98.4
[2022-01-04 15:08] VITALS: BP 107/70; PULSE 96
[2022-01-04 15:38] VITALS: PULSE 62
[2022-01-04 16:09] VITALS: BP 109/48; PULSE 48
[2022-01-04 16:39] VITALS: BP 123/75; PULSE 52; TEMP 98.5
== END 2022-01-04 17:51 | disposition home or self-care (01) ==
LOC: EUO 13:13
PROVIDERS: Family Medicine
DX: H20.9 Unspecified iridocyclitis (principal); D86.9 Sarcoidosis, unspecified
CPT/HCPCS: J7050; Q5103

== ENCOUNTER 2022-03-01 13:18 | Outpatient (CLI) | payer MEDICARE, BC ==
[~2022-03-01] VITALS: Ht 162.6 cm; Wt 62.8 kg
[2022-03-01 13:57] LABS: BASO # 0.1 K/mm3 (0.0-0.2); BASO % 0.9 % (0.0-2.0); EOS # 0.1 K/mm3 (0.0-0.7); EOS % 2.6 % (0.0-4.0); GRAN % 55.9 % (42.2-75.2); HEMATOCRIT 39.2 % (37.0-47.0); HEMOGLOBIN 12.9 g/dl (12.5-16.0); LYMPH # 1.7 K/mm3 (1.2-3.4); LYMPH % 30.6 % (20.0-51.0); MEAN CELL VOLUME 95 fl (80.0-100.0); MEAN CORPUSCULAR HEMOGLOBIN 31 pg (27-31); MEAN CORPUSCULAR HGB CONC 33 g/dl (33.0-37.0); MEAN PLATELET VOLUME 9.3 fl (7.4-10.4); MONO # 0.5 K/mm3 (0.1-0.6); MONO % 9.8 % (1.7-9.3); PLATELET COUNT 185 K/mm3 (130-400); RED BLOOD COUNT 4.14 M/mm3 (4.10-5.30); REDCELL DISTRIBUTION WIDTH-CV 13.3 % (11.5-14.5)
[2022-03-01 14:02] LABS: ALBUMIN 4.2 gm/dL (3.4-4.8); BILIRUBIN,TOTAL 0.4 mg/dL (0.2-1.2); CALCIUM 9.5 mg/dL (8.4-10.2); CREATININE, serum 0.97 mg/dL (0.57-1.11); TOTAL PROTEIN 7.3 gm/dL (6.2-8.1)
[2022-03-01 15:09] VITALS: BP 128/74; PULSE 54; TEMP 97.4
[2022-03-01 15:40] VITALS: BP 113/66; PULSE 50
[2022-03-01] MEDS ORDERED: BENTYL 10MG10 MG/CAP PO (15:56)
[2022-03-01] MEDS ORDERED: PEPCID 20MG TAB20 MG PO (15:57)
[2022-03-01 16:10] VITALS: BP 111/74; PULSE 73
[2022-03-01 16:40] VITALS: BP 109/57; PULSE 58
[2022-03-01 17:10] VITALS: PULSE 48
== END 2022-03-01 17:31 | disposition home or self-care (01) ==
LOC: EUO 13:18
PROVIDERS: Family Medicine
DX: H20.9 Unspecified iridocyclitis (principal)
CPT/HCPCS: J7050; Q5103

== ENCOUNTER 2022-04-26 13:22 | Outpatient (CLI) | payer MEDICARE, BC ==
[~2022-04-26] VITALS: Ht 162.6 cm; Wt 62.8 kg
[~2022-04-26 13:22] MED LIST changes: +BENTYL 10MG10 MG/CAP PO; +PEPCID 20MG TAB20 MG PO
[2022-04-26 14:06] LABS: BASO % 0.8 % (0.0-2.0); EOS # 0.2 K/mm3 (0.0-0.7); EOS % 3.6 % (0.0-4.0); GRAN # 2.7 K/mm3 (1.4-6.5); GRAN % 53.5 % (42.2-75.2); HEMATOCRIT 40.3 % (37.0-47.0); HEMOGLOBIN 13.4 g/dl (12.5-16.0); LYMPH # 1.6 K/mm3 (1.2-3.4); LYMPH % 32.6 % (20.0-51.0); MEAN CELL VOLUME 96 fl (80.0-100.0); MEAN CORPUSCULAR HEMOGLOBIN 32 pg (27-31); MEAN CORPUSCULAR HGB CONC 33 g/dl (33.0-37.0); MEAN PLATELET VOLUME 9.2 fl (7.4-10.4); MONO # 0.5 K/mm3 (0.1-0.6); MONO % 9.3 % (1.7-9.3); PLATELET COUNT 172 K/mm3 (130-400); RED BLOOD COUNT 4.22 M/mm3 (4.10-5.30); REDCELL DISTRIBUTION WIDTH-CV 12.7 % (11.5-14.5)
[2022-04-26 14:24] LABS: ALBUMIN 4.1 gm/dL (3.4-4.8); BILIRUBIN,TOTAL 0.4 mg/dL (0.2-1.2); CALCIUM 9.3 mg/dL (8.4-10.2); CREATININE, serum 1.02 mg/dL (0.57-1.11); POTASSIUM 3.8 mmol/L (3.5-4.5); TOTAL PROTEIN 7.5 gm/dL (6.2-8.1)
[2022-04-26 14:39] VITALS: BP 114/72; PULSE 64; TEMP 97.8
[2022-04-26 15:09] VITALS: BP 118/65; PULSE 50
[2022-04-26 15:40] VITALS: BP 111/49; PULSE 52
[2022-04-26 16:09] VITALS: BP 153/78; PULSE 55
[2022-04-26 16:40] VITALS: BP 109/41; PULSE 59
== END 2022-04-26 16:59 | disposition home or self-care (01) ==
LOC: EUO 13:22
PROVIDERS: Family Medicine
DX: H20.9 Unspecified iridocyclitis (principal)
CPT/HCPCS: J7050; Q5103

== ENCOUNTER → 2022-08-15 | Outpatient (CLI) | payer MEDICARE, BC ==
[~2022-08-15] MED LIST changes: +INFLECTRA100 MG IV
== END ==
LOC: MC.RAD 14:28
DX: Z12.31 Encounter for screening mammogram for malignant neoplasm of breast (principal)

== ENCOUNTER 2022-08-16 13:29 | Outpatient (CLI) | payer MEDICARE, BC ==
[~2022-08-16] VITALS: Ht 162.6 cm; Wt 62.8 kg
[2022-08-16 07:30] VITALS: BP 104/67; PULSE 57
[~2022-08-16 13:29] MED LIST changes: -INFLECTRA100 MG IV
[2022-08-16 14:19] LABS: BASO % 0.7 % (0.0-2.0); EOS # 0.2 K/mm3 (0.0-0.7); EOS % 2.9 % (0.0-4.0); GRAN # 3.5 K/mm3 (1.4-6.5); GRAN % 60.2 % (42.2-75.2); HEMOGLOBIN 12.6 g/dl (12.5-16.0); LYMPH # 1.5 K/mm3 (1.2-3.4); LYMPH % 26.1 % (20.0-51.0); MEAN CELL VOLUME 94 fl (80.0-100.0); MEAN CORPUSCULAR HEMOGLOBIN 31 pg (27-31); MEAN CORPUSCULAR HGB CONC 33 g/dl (33.0-37.0); MONO # 0.6 K/mm3 (0.1-0.6); MONO % 10.1 % (1.7-9.3); PLATELET COUNT 180 K/mm3 (130-400); RED BLOOD COUNT 4.04 M/mm3 (4.10-5.30); REDCELL DISTRIBUTION WIDTH-CV 12.5 % (11.5-14.5)
[2022-08-16 14:47] VITALS: BP 98/56; PULSE 54; TEMP 98.3
[2022-08-16 14:47] LABS: ALBUMIN 3.8 gm/dL (3.4-4.8); BILIRUBIN,TOTAL 0.4 mg/dL (0.2-1.2); CALCIUM 9.2 mg/dL (8.4-10.2); CREATININE, serum 0.88 mg/dL (0.57-1.11); POTASSIUM 4.1 mmol/L (3.5-4.5); TOTAL PROTEIN 6.6 gm/dL (6.2-8.1)
[2022-08-16] MEDS ORDERED: INFLECTRA100 MG IV (15:08)
[2022-08-16 15:36] VITALS: BP 94/59; PULSE 57
[2022-08-16 16:06] VITALS: BP 108/66; PULSE 59
[2022-08-16 16:37] VITALS: BP 108/57; PULSE 58; TEMP 98.7
[2022-08-16 17:06] VITALS: BP 110/72; PULSE 55
--- NOTE | 2022-08-16 17:34 | NUR ---
Pt tolerated infusion without issue. She exits dept with steady gait.
== END 2022-08-16 17:34 | disposition home or self-care (01) ==
LOC: EUO 13:29
PROVIDERS: Family Medicine
DX: D86.9 Sarcoidosis, unspecified (principal); H20.9 Unspecified iridocyclitis
CPT/HCPCS: J7050; Q5103

== ENCOUNTER 2022-10-11 13:25 | Outpatient (CLI) | payer MEDICARE, BC ==
[~2022-10-11] VITALS: Ht 162.6 cm; Wt 63.7 kg
[~2022-10-11 13:25] MED LIST changes: +INFLECTRA100 MG IV
[2022-10-11 13:49] VITALS: BP 126/53; PULSE 50; TEMP 98
[2022-10-11 13:58] LABS: BASO % 0.7 % (0.0-2.0); EOS # 0.2 K/mm3 (0.0-0.7); EOS % 2.6 % (0.0-4.0); GRAN # 3.3 K/mm3 (1.4-6.5); GRAN % 56.6 % (42.2-75.2); HEMATOCRIT 37.7 % (37.0-47.0); HEMOGLOBIN 12.4 g/dl (12.5-16.0); LYMPH # 1.7 K/mm3 (1.2-3.4); LYMPH % 29.9 % (20.0-51.0); MEAN CELL VOLUME 95 fl (80.0-100.0); MEAN CORPUSCULAR HEMOGLOBIN 31 pg (27-31); MEAN CORPUSCULAR HGB CONC 33 g/dl (33.0-37.0); MEAN PLATELET VOLUME 8.9 fl (7.4-10.4); MONO # 0.6 K/mm3 (0.1-0.6); PLATELET COUNT 172 K/mm3 (130-400); RED BLOOD COUNT 3.96 M/mm3 (4.10-5.30); REDCELL DISTRIBUTION WIDTH-CV 13.1 % (11.5-14.5)
[2022-10-11 14:20] LABS: ALBUMIN 3.8 gm/dL (3.4-4.8); BILIRUBIN,TOTAL 0.4 mg/dL (0.2-1.2); CALCIUM 9.1 mg/dL (8.4-10.2); CREATININE, serum 0.87 mg/dL (0.57-1.11); TOTAL PROTEIN 6.6 gm/dL (6.2-8.1)
[2022-10-11 14:54] VITALS: BP 107/64; PULSE 58; TEMP 98.2
[2022-10-11 15:30] VITALS: BP 108/60; PULSE 54
[2022-10-11 16:07] VITALS: BP 131/77; PULSE 55
--- NOTE | 2022-10-11 16:18 | NUR ---
Pt c/o aching discomfort at left AC. IV stopped. Small area of edema noted. New IV started to rt hand. Pharmacy notified for further instruction by ANAYELI Sotelo. No additional information provided by pharmacy. Warm blanket wrapped around left arm. Pt states aching is improved after infusion was stopped.
[2022-10-11 17:01] VITALS: BP 124/66; PULSE 53
--- NOTE | 2022-10-11 17:02 | NUR ---
Pt tolerated completion of infusion without issue. IV to rt hand DC'd, site wrapped with coban. Pt exits dept with steady gait.
== END 2022-10-11 17:02 | disposition home or self-care (01) ==
LOC: EUO 13:25
PROVIDERS: Family Medicine
DX: H20.9 Unspecified iridocyclitis (principal); D86.9 Sarcoidosis, unspecified
CPT/HCPCS: J7050; Q5103

== ENCOUNTER 2023-03-28 13:19 | Outpatient (CLI) | payer MEDICARE, BC ==
[~2023-03-28] VITALS: Ht 162.6 cm; Wt 64.3 kg
[2023-03-28 13:43] LABS: BASO # 0.1 K/mm3 (0.0-0.2); BASO % 0.8 % (0.0-2.0); EOS # 0.1 K/mm3 (0.0-0.7); EOS % 2.1 % (0.0-4.0); GRAN # 3.9 K/mm3 (1.4-6.5); GRAN % 61.7 % (42.2-75.2); HEMATOCRIT 38.4 % (37.0-47.0); HEMOGLOBIN 12.7 g/dl (12.5-16.0); LYMPH # 1.6 K/mm3 (1.2-3.4); LYMPH % 25.8 % (20.0-51.0); MEAN CELL VOLUME 96 fl (80.0-100.0); MEAN CORPUSCULAR HEMOGLOBIN 32 pg (27-31); MEAN CORPUSCULAR HGB CONC 33 g/dl (33.0-37.0); MEAN PLATELET VOLUME 8.9 fl (7.4-10.4); MONO # 0.6 K/mm3 (0.1-0.6); MONO % 9.4 % (1.7-9.3); PLATELET COUNT 180 K/mm3 (130-400); RED BLOOD COUNT 4.01 M/mm3 (4.10-5.30)
[2023-03-28 13:54] LABS: ALBUMIN 3.8 gm/dL (3.4-4.8); BILIRUBIN,TOTAL 0.4 mg/dL (0.2-1.2); C-REACTIVE PROTEIN 0.07 mg/dL (0.00-0.50); CALCIUM 9.4 mg/dL (8.4-10.2); CREATININE, serum 0.92 mg/dL (0.57-1.11); POTASSIUM 3.6 mmol/L (3.5-4.5); TOTAL PROTEIN 6.7 gm/dL (6.2-8.1)
[2023-03-28 13:58] VITALS: BP 106/70; PULSE 52; TEMP 97.9
[2023-03-28 14:13] LABS: ERYTHROCYTE SEDIMENTATION RATE 15 mm/hr (0-30)
[2023-03-28 14:45] VITALS: BP 104/53; PULSE 53
[2023-03-28 15:15] VITALS: BP 108/57; PULSE 60
[2023-03-28 15:45] VITALS: BP 102/50; PULSE 59
[2023-03-28 16:15] VITALS: BP 104/57; PULSE 51
== END 2023-03-28 16:50 | disposition home or self-care (01) ==
LOC: EUO 13:19
PROVIDERS: Family Medicine
DX: D86.9 Sarcoidosis, unspecified (principal); H20.9 Unspecified iridocyclitis
CPT/HCPCS: J7050; Q5103